=== PATIENT | female | born 1990 | race Two or more races ===

== ENCOUNTER 2022-08-24 10:45 | Inpatient (IN) | payer OTHER ==
[~2022-08-24] VITALS: Ht 165.1 cm; Wt 92.5 kg
[2022-08-24] MEDS ORDERED: ULTRAM50 MG PO (14:21)
[2022-08-24] MEDS ORDERED: AYGESTIN5 MG PO (14:21)
[2022-08-24] MEDS ORDERED: CELEBREX200MG PO (14:21)
[2022-08-24] MEDS ORDERED: GABAPENTIN300 M2 PO (14:21)
[2022-08-30] MEDS ORDERED: PANTOPRAZOLE SO40 MG (10:20)
== END 2022-09-02 13:51 | disposition home or self-care (01) | DRG 333 ==
LOC: O/R 08-30 07:38 → SURH 08-30 10:45
PROVIDERS: Obstetrics & Gynecology Gynecology; ADMIT Surgery; ATTEND Surgery
PROC: 0DTJ4ZZ Resection of Appendix, Percutaneous Endoscopic Approach (ICD-10-PCS; 2022-08-30)
PROC: 0UT94ZZ Resection of Uterus, Percutaneous Endoscopic Approach (ICD-10-PCS; 2022-08-30)
PROC: 0UT74ZZ Resection of Bilateral Fallopian Tubes, Percutaneous Endoscopic Approach (ICD-10-PCS; 2022-08-30)
PROC: 0UT24ZZ Resection of Bilateral Ovaries, Percutaneous Endoscopic Approach (ICD-10-PCS; 2022-08-30)
PROC: 0DJD8ZZ Inspection of Lower Intestinal Tract, Via Natural or Artificial Opening Endoscopic (ICD-10-PCS; 2022-08-30)
PROC: 0TJB8ZZ Inspection of Bladder, Via Natural or Artificial Opening Endoscopic (ICD-10-PCS; 2022-08-30)
PROC: 0DTP4ZZ Resection of Rectum, Percutaneous Endoscopic Approach (ICD-10-PCS; principal; 2022-08-30 13:00)
PROC: 0DNP4ZZ Release Rectum, Percutaneous Endoscopic Approach (ICD-10-PCS; 2022-08-30 13:00)
DX: N80.512 Deep endometriosis of the rectum (principal); K56.51 Intestinal adhesions [bands], with partial obstruction; N80.02 Deep endometriosis of the uterus; N73.6 Female pelvic peritoneal adhesions (postinfective); D25.1 Intramural leiomyoma of uterus; D25.2 Subserosal leiomyoma of uterus; Z20.822 Contact with and (suspected) exposure to COVID-19

== ENCOUNTER 2022-09-23 08:22 | Inpatient (IN) | payer OTHER ==
[~2022-09-23] VITALS: Ht 165.1 cm; Wt 86.2 kg
[~2022-09-23 08:22] MED LIST: AYGESTIN5 MG PO; CELEBREX200MG PO; GABAPENTIN300 M2 PO; PANTOPRAZOLE SO40 MG; ULTRAM50 MG PO
--- NOTE | 2022-09-23 09:13 | NUR ---
PTE ALERTA Y ORIENTADA POR MACIE ESFERAS CON BUEN PATRON RESPIRATORIO. REFIERE QUE EN NOVIE 8 SE REALIZO YUSUF OPERACION CON DRA.MARLA ESTRADA LIAN VIENE HOY POR FISTULA RECTOVAGINAL, YUSUF COMPLICACION DE LA OPERACION.
[2022-09-25] MEDS ORDERED: METRONIDAZOLE500 MG (11:04)
[2022-09-25] MEDS ORDERED: CIPROFLOXACIN500 MG (11:04)
[2022-10-05] MEDS ORDERED: OXYCODONE HCL5 MG PO (16:49)
== END 2022-10-05 20:32 | disposition home or self-care (01) | DRG 331 ==
LOC: ER 08:22 → SURG 09:56 → SURH 09:56 → SURG 14:10
PROVIDERS: ADMIT Surgery; ATTEND Surgery
PROC: 02HV33Z Insertion of Infusion Device into Superior Vena Cava, Percutaneous Approach (ICD-10-PCS; 2022-09-24)
PROC: 0D1B4Z4 Bypass Ileum to Cutaneous, Percutaneous Endoscopic Approach (ICD-10-PCS; principal; 2022-10-03)
DX: N82.3 Fistula of vagina to large intestine (principal); N82.4 Other female intestinal-genital tract fistulae; N80.8 Other endometriosis; Z20.822 Contact with and (suspected) exposure to COVID-19

== ENCOUNTER 2022-10-07 11:07 | Emergency (ER) | payer OTHER ==
[~2022-10-07] VITALS: Ht 167.6 cm; Wt 84.4 kg
[~2022-10-07 11:07] MED LIST changes: +CIPROFLOXACIN500 MG; +METRONIDAZOLE500 MG; +OXYCODONE HCL5 MG PO
== END 2022-10-07 17:51 | disposition home or self-care (01) ==
LOC: ER 11:07
DX: K94.13 Enterostomy malfunction (principal)

== ENCOUNTER 2022-10-13 18:53 | Inpatient (IN) | payer OTHER ==
[~2022-10-13] VITALS: Ht 165.1 cm; Wt 81.6 kg
[2022-10-16] MEDS ORDERED: PROTONIX40 MG PO (09:28)
[2022-10-16] MEDS ORDERED: PEPCID AC20 MG PO (09:29)
== END 2022-10-16 10:52 | disposition home or self-care (01) | DRG 394 ==
LOC: ER 18:53 → SURG 23:26 → SURH 23:26
PROVIDERS: ADMIT Surgery; ATTEND Surgery
PROC: BW21Y0Z Computerized Tomography (CT Scan) of Abdomen and Pelvis using Other Contrast, Unenhanced and Enhanced (ICD-10-PCS; principal; 2022-10-13)
DX: N82.4 Other female intestinal-genital tract fistulae (principal); K94.13 Enterostomy malfunction; N82.3 Fistula of vagina to large intestine; Z20.822 Contact with and (suspected) exposure to COVID-19

== ENCOUNTER 2023-01-16 08:26 | Outpatient (CLI) | payer OTHER ==
[~2023-01-16 08:26] MED LIST changes: +PEPCID AC20 MG PO; +PROTONIX40 MG PO
== END 2023-01-16 08:28 | disposition home or self-care (01) ==
LOC: RX STUDY 08:26
PROVIDERS: ATTEND Surgery
DX: N82.4 Other female intestinal-genital tract fistulae (principal)

== ENCOUNTER 2023-01-29 12:30 | Inpatient (IN) | payer OTHER ==
[~2023-01-29] VITALS: Ht 165.1 cm; Wt 86.2 kg
[2023-02-01] MEDS ORDERED: PANTOPRAZOLE SO40 MG (13:12)
[2023-02-01] MEDS ORDERED: ESOMEPRAZOLE MA40 MG (13:12)
[2023-02-01] MEDS ORDERED: FAMOTIDINE20 MG (13:12)
[2023-02-05] MEDS ORDERED: HYOSCYAMINE0.125 M1 SL (09:08)
[2023-02-05] MEDS ORDERED: PHENERGAN25 MG/1 ML IM (09:09)
[2023-02-05] MEDS ORDERED: INTESTINEX680 M1 PO (09:10)
[2023-02-05] MEDS ORDERED: TRAMADOL HCL50 MG PO (09:10)
== END 2023-02-05 10:41 | disposition home or self-care (01) | DRG 336 ==
LOC: SURH 01-31 05:51 → O/R 01-31 05:51 → SURG 01-31 07:00 → SURH 01-31 11:46 → SURG 01-31 12:30 → SURH 02-04 17:51
PROVIDERS: ADMIT Surgery; ATTEND Surgery
PROC: 0DBB4ZZ Excision of Ileum, Percutaneous Endoscopic Approach (ICD-10-PCS; 2023-01-31)
PROC: 0DJD8ZZ Inspection of Lower Intestinal Tract, Via Natural or Artificial Opening Endoscopic (ICD-10-PCS; 2023-01-31)
PROC: 0DNW4ZZ Release Peritoneum, Percutaneous Endoscopic Approach (ICD-10-PCS; principal; 2023-01-31 07:00)
DX: Z43.2 Encounter for attention to ileostomy (principal); N82.3 Fistula of vagina to large intestine; Z20.822 Contact with and (suspected) exposure to COVID-19; N80.8 Other endometriosis

== ENCOUNTER 2023-02-14 17:59 | Inpatient (IN) | payer OTHER ==
[~2023-02-14] VITALS: Ht 165.1 cm; Wt 81.2 kg
[~2023-02-14 17:59] MED LIST changes: +ESOMEPRAZOLE MA40 MG; +FAMOTIDINE20 MG; +HYOSCYAMINE0.125 M1 SL; +INTESTINEX680 M1 PO; +PHENERGAN25 MG/1 ML IM; +TRAMADOL HCL50 MG PO
[2023-02-18] MEDS ORDERED: HYOSCYAMINE0.125 M1 SL (09:05)
[2023-02-18] MEDS ORDERED: TRAMADOL HCL50 MG PO (09:05)
[2023-02-18] MEDS ORDERED: CARAFATE1 GM PO (09:05)
== END 2023-02-18 10:05 | disposition home or self-care (01) | DRG 392 ==
LOC: ER 17:59 → SEC-K 02-15 07:19 → SURG 02-15 07:19
PROVIDERS: ADMIT Surgery; ATTEND Surgery
DX: K52.89 Other specified noninfective gastroenteritis and colitis (principal); N82.3 Fistula of vagina to large intestine; E86.0 Dehydration; N80.8 Other endometriosis; Z20.822 Contact with and (suspected) exposure to COVID-19

== ENCOUNTER → 2023-07-30 | Outpatient (CLI) | payer OTHER ==
[~2023-07-30] MED LIST changes: +CARAFATE1 GM PO
== END | disposition home or self-care (01) ==
LOC: MAMO-SONO 10:53
PROVIDERS: ATTEND Obstetrics & Gynecology Gynecology
DX: Z12.31 Encounter for screening mammogram for malignant neoplasm of breast (principal); N64.4 Mastodynia

== ENCOUNTER 2023-08-13 02:58 | Inpatient (IN) | payer OTHER ==
[~2023-08-13] VITALS: Ht 152.4 cm; Wt 90.7 kg
[2023-08-13 04:02] LABS: HEMATOCRIT 37.5 % (36.0-45.00); HEMOGLOBIN 12.6 g/dL (12.0-15.00); MEAN CELL VOLUME 85.6 fL (80.00-100.00); MEAN CORPUSCULAR HEMOGLOBIN 28.7 pg (27.00-32.0); MEAN CORPUSCULAR HGB CONC 33.6 g/dl (32.0-36.0); PLATELET COUNT 366 K/uL (150-450); RED BLOOD COUNT 4.37 M/uL (4.00-6.00); RED CELL DISTRIBUTION WIDTH 13.8 % (11.5-14.5)
[2023-08-13 04:19] LABS: CALCIUM 9.2 mg/dL (8.5-10.1); CREATININE SERUM 0.63 mg/dL (0.55-1.02); GFR 108.17; POTASSIUM 3.44 mEq/L (3.5-5.1)
[2023-08-13 09:19] LABS: HEMATOCRIT 36.8 % (36.0-45.00); HEMOGLOBIN 12.1 g/dL (12.0-15.00); MEAN CELL VOLUME 86.1 fL (80.00-100.00); MEAN CORPUSCULAR HEMOGLOBIN 28.2 pg (27.00-32.0); MEAN CORPUSCULAR HGB CONC 32.8 g/dl (32.0-36.0); PLATELET COUNT 332 K/uL (150-450); RED BLOOD COUNT 4.28 M/uL (4.00-6.00); RED CELL DISTRIBUTION WIDTH 13.7 % (11.5-14.5)
[2023-08-13 09:23] LABS: CALCIUM 8.8 mg/dL (8.5-10.1); CREATININE SERUM 0.52 mg/dL (0.55-1.02); GFR 134.98; POTASSIUM 3.85 mEq/L (3.5-5.1)
[2023-08-13 10:14] LABS: PH,URINE 6.5 (5.0-8.0); URINE APPEARANCE Cloudy; URINE BILIRRUBIN Negative (NEGATIVE); URINE BLOOD Negative; URINE COLOR Yellow; URINE GLUCOSE Negative (NEGATIVE); URINE LEUKOCYTE Negative; URINE NITRATE Negative; URINE PROTEIN Negative (NEGATIVE); URINE UROBILINOGEN 0.2 E.U./dl
[2023-08-13 10:16] LABS: URINE EPITHELIAL CELLS 35.3 uL (0.0-38.8); URINE WBC 22.1 uL (0.0-23.2)
[2023-08-13 20:44] LABS: AMYLASE 90 U/L (25-115); INR 1.02; LIPASE 31 U/L (13-75); PARTIAL THROMBOPLASTIN TIME 24.3 SECONDS (22.0-34.0); PROTHROMBIN TIME 10.7 SECONDS (9.0-11.5)
[2023-08-14 15:16] LABS: PH,URINE 6.5 (5.0-8.0); URINE APPEARANCE Clear; URINE BILIRRUBIN Negative (NEGATIVE); URINE BLOOD Negative; URINE COLOR Yellow; URINE GLUCOSE Negative (NEGATIVE); URINE LEUKOCYTE Negative; URINE NITRATE Negative; URINE PROTEIN Negative (NEGATIVE); URINE UROBILINOGEN 0.2 E.U./dl
[2023-08-14 15:17] LABS: URINE EPITHELIAL CELLS 7.5 uL (0.0-38.8); URINE RBC 9.9 uL (0.0-20.8); URINE WBC 8.9 uL (0.0-23.2)
[2023-08-14 15:21] LABS: URINE BACTERIA 2.5 uL (0.0-1933)
[2023-08-15 06:23] LABS: HEMATOCRIT 36.6 % (36.0-45.00); HEMOGLOBIN 12.4 g/dL (12.0-15.00); MEAN CELL VOLUME 86.1 fL (80.00-100.00); MEAN CORPUSCULAR HEMOGLOBIN 29.1 pg (27.00-32.0); MEAN CORPUSCULAR HGB CONC 33.8 g/dl (32.0-36.0); PLATELET COUNT 322 K/uL (150-450); RED BLOOD COUNT 4.25 M/uL (4.00-6.00); RED CELL DISTRIBUTION WIDTH 13.6 % (11.5-14.5)
[2023-08-15 07:07] LABS: ALBUMIN 3.6 gm/dL (3.4-5.0); BILIRUBIN TOTAL 0.83 mg/dL (0.3-1.2); CALCIUM 8.3 mg/dL (8.5-10.1); CREATININE SERUM 0.49 mg/dL (0.55-1.02); GFR 144.56; GLOBULINA 3.3 G/DL (2.4-3.5); MAGNESIUM 2.3 mg/dL (1.8-2.4); POTASSIUM 3.32 mEq/L (3.5-5.1); TOTAL PROTEIN 6.9 gm/dL (6.4-8.2)
[2023-08-15 07:47] LABS: C-REACTIVE PROTEIN 0.63 MG/DL (0.00-0.29); PHOSPHOROUS 1.8 mg/dL (2.5-4.9)
[2023-08-17] MEDS ORDERED: CARAFATE1 GM/10 ML PO (16:35)
[2023-08-17] MEDS ORDERED: REGLAN5 MG/5 ML PO (16:35)
[2023-08-17] MEDS ORDERED: ZOFRAN8 MG PO (16:35)
== END 2023-08-17 17:33 | disposition left against medical advice (07) | DRG 392 ==
LOC: ER 02:58 → MEDJ 19:31
PROVIDERS: General Practice; Internal Medicine Infectious Disease; ADMIT Internal Medicine; ATTEND Internal Medicine
PROC: BW21YZZ Computerized Tomography (CT Scan) of Abdomen and Pelvis using Other Contrast (ICD-10-PCS; principal; 2023-08-13)
PROC: BW40ZZZ Ultrasonography of Abdomen (ICD-10-PCS; 2023-08-13)
PROC: BW4GZZZ Ultrasonography of Pelvic Region (ICD-10-PCS; 2023-08-13)
DX: K52.89 Other specified noninfective gastroenteritis and colitis (principal); T38.7X5A Adverse effect of androgens and anabolic congeners, initial encounter; K31.84 Gastroparesis; E86.0 Dehydration; E83.39 Other disorders of phosphorus metabolism; Z93.2 Ileostomy status; Z90.710 Acquired absence of both cervix and uterus; Z90.49 Acquired absence of other specified parts of digestive tract

== ENCOUNTER 2024-10-04 23:01 | Emergency (ER) | payer OTHER ==
[~2024-10-04] VITALS: Ht 165.1 cm; Wt 79.4 kg
[~2024-10-04 23:01] MED LIST changes: +CARAFATE1 GM/10 ML PO; +REGLAN5 MG/5 ML PO; +ZOFRAN8 MG PO
[2024-10-04] MEDS ORDERED: ESTRADIOL2 MG PO (23:28)
[2024-10-04] MEDS ORDERED: BUPROPION XL300 MG PO (23:28)
[2024-10-05] MEDS ORDERED: 0.9 % SODIUM CHLORIDE 1,000 ML IV STA (00:26)
[2024-10-05] MEDS ORDERED: HYOSCYAMINE SULFATE 0.125 MG TAB.SUBL SL STA (00:27)
[2024-10-05] MEDS ORDERED: MEPERIDINE HCL/PF 25 MG/ML VIAL IM STA (00:27)
[2024-10-05] MEDS ORDERED: ONDANSETRON HCL 2 MG/ML VIAL IV STA (00:28)
[2024-10-05] MEDS ORDERED: PROMETHAZINE HCL 50 MG/ML AMPUL IM STA (00:28)
[2024-10-05] MEDS ORDERED: FAMOtidine 10 MG/ML (4ML VIAL) IV PUSH STA (00:29)
[2024-10-05 01:30] LABS: HEMATOCRIT 38.3 % (36.0-45.00); HEMOGLOBIN 12.8 g/dL (12.0-15.00); MEAN CELL VOLUME 87.6 fL (80.00-100.00); MEAN CORPUSCULAR HEMOGLOBIN 29.2 pg (27.00-32.0); MEAN CORPUSCULAR HGB CONC 33.4 g/dl (32.0-36.0); PLATELET COUNT 245 K/uL (150-450); RED BLOOD COUNT 4.38 M/uL (4.00-6.00); RED CELL DISTRIBUTION WIDTH 13.3 % (11.5-14.5)
[2024-10-05 02:10] LABS: CREATININE SERUM 1.05 mg/dL (0.55-1.02); GFR 59.64; POTASSIUM 3.22 mEq/L (3.5-5.1)
== END 2024-10-05 05:35 | disposition home or self-care (01) ==
LOC: ER 23:03
DX: K52.9 Noninfective gastroenteritis and colitis, unspecified (principal); N39.0 Urinary tract infection, site not specified

== ENCOUNTER 2024-11-20 23:10 | Emergency (ER) | payer OTHER ==
[~2024-11-20] VITALS: Ht 165.1 cm; Wt 77.6 kg
[~2024-11-20 23:10] MED LIST changes: +BUPROPION XL300 MG PO; +ESTRADIOL2 MG PO
[2024-11-20] MEDS ORDERED: TRAZODONE HCL50 MG PO (23:51)
== END 2024-11-21 | disposition left against medical advice (07) ==
LOC: ER 23:12
DX: Z53.21 Procedure and treatment not carried out due to patient leaving prior to being seen by health care provider (principal)

== ENCOUNTER 2024-12-13 20:00 | Emergency (ER) | payer OTHER ==
[~2024-12-13] VITALS: Ht 165.1 cm; Wt 78.0 kg
[~2024-12-13 20:00] MED LIST changes: +TRAZODONE HCL50 MG PO
[2024-12-13] MEDS ORDERED: ACETAMINOPHEN 500 MG GEL..CAP PO ONE ×2 (20:19→20:45)
[2024-12-13] MEDS ORDERED: 0.9 % SODIUM CHLORIDE 1,000 ML IV SCH (20:45)
[2024-12-13 21:26] LABS: HEMATOCRIT 34.5 % (36.0-45.00); HEMOGLOBIN 11.4 g/dL (12.0-15.00); MEAN CELL VOLUME 88.7 fL (80.00-100.00); MEAN CORPUSCULAR HEMOGLOBIN 29.4 pg (27.00-32.0); MEAN CORPUSCULAR HGB CONC 33.2 g/dl (32.0-36.0); PLATELET COUNT 266 K/uL (150-450); RED BLOOD COUNT 3.88 M/uL (4.00-6.00); RED CELL DISTRIBUTION WIDTH 13.7 % (11.5-14.5)
[2024-12-13 21:48] LABS: URINE APPEARANCE Clear; URINE BILIRRUBIN Negative (NEGATIVE); URINE BLOOD Negative; URINE COLOR Yellow; URINE GLUCOSE Negative (NEGATIVE); URINE KETONE Negative (NEGATIVE); URINE LEUKOCYTE Negative; URINE NITRATE Negative; URINE PROTEIN Negative (NEGATIVE); URINE UROBILINOGEN 0.2 E.U./dl
[2024-12-13 21:50] LABS: INR 0.99; PARTIAL THROMBOPLASTIN TIME 23.5 SECONDS (22.0-34.0); PROTHROMBIN TIME 10.8 SECONDS (9.0-11.5)
[2024-12-13 21:55] LABS: ALBUMIN 3.4 gm/dL (3.4-5.0); BILIRUBIN TOTAL 0.49 mg/dL (0.3-1.2); CALCIUM 8.6 mg/dL (8.5-10.1); CREATININE SERUM 0.77 mg/dL (0.55-1.02); GFR 85.31; GLOBULINA 3.3 G/DL (2.4-3.5); POTASSIUM 3.39 mEq/L (3.5-5.1); TOTAL PROTEIN 6.7 gm/dL (6.4-8.2)
[2024-12-13 21:56] LABS: URINE BACTERIA 89.2 uL (0.0-1933); URINE EPITHELIAL CELLS 1.4 uL (0.0-38.8); URINE RBC 3.5 uL (0.0-20.8)
[2024-12-13] MEDS ORDERED: FAMOTIDINE/PF 20 MG/2 ML VIAL IV PUSH ONE (22:15)
[2024-12-13] MEDS ORDERED: ONDANSETRON HCL 2 MG/ML VIAL IV ONE (22:15)
[2024-12-13] MEDS ORDERED: MEPERIDINE HCL 25 MG/ML AMPUL IV ONE (22:15)
[2024-12-13 22:35] LABS: URINE WBC 0.7 uL (0.0-23.2)
[2024-12-13] MEDS ORDERED: MORPHINE SULFATE 2 MG/ML CARTRIDGE IV ONE (23:15)
[2024-12-13] MEDS ORDERED: ONDANSETRON HCL 2 MG/ML VIAL ONE (23:34)
[2024-12-13] MEDS ORDERED: FAMOTIDINE/PF 20 MG/2 ML VIAL ONE (23:34)
[2024-12-14] MEDS ORDERED: FAMOtidine 10 MG/ML (4ML VIAL) IV PUSH STA (03:16)
[2024-12-14] MEDS ORDERED: PROMETHAZINE HCL 50 MG/ML AMPUL IM STA (03:17)
[2024-12-14] MEDS ORDERED: PROMETHAZINE HCL 50 MG/ML AMPUL IM ONE (03:20)
[2024-12-14] MEDS ORDERED: FAMOTIDINE/PF 20 MG/2 ML VIAL ONE (03:21)
== END 2024-12-14 06:00 | disposition home or self-care (01) ==
LOC: ER 20:02
PROVIDERS: Emergency Medicine
DX: R19.7 Diarrhea, unspecified (principal); Z20.822 Contact with and (suspected) exposure to COVID-19
CPT/HCPCS: 36415; 74177; Q9965